=== PATIENT | male | born 1955 | race Caucasian/White ===

== ENCOUNTER 2018-07-22 02:01 | Emergency (ER) | payer MEDICAID, OTHER ==
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
[2018-07-22 06:04] VITALS: BP 122/69; PULSE 78; RESP 20; TEMP 97.6; O2SAT 98
== END 2018-07-22 06:04 | disposition home or self-care (01) ==
LOC: C.ER 02:01
DX: R11.10 Vomiting, unspecified (principal); Z59.0 Homelessness